=== PATIENT | female | born 1990 | race Caucasian/White ===

== ENCOUNTER 2017-09-25 21:37 | Outpatient (CLI) | payer OTHER ==
[2017-09-25] MEDS: ACETAMINOPHEN 500 MG TAB PO (22:30)
[2017-09-25 22:37] LABS: ADD UMIC NO; UR ASCORBIC ACID NEGATIVE (NEGATIVE); UR BILIRUBIN (Dip) NEGATIVE (NEGATIVE); UR BLOOD (Dip) NEGATIVE (NEGATIVE); UR CALCIUM OXALATE CRYSTAL MODERATE /HPF (NONE SEEN); UR CLARITY SLIGHTLY CLOUDY (CLEAR); UR COLOR YELLOW (YELLOW); UR GLUCOSE (Dip) NEGATIVE (NEGATIVE); UR KETONES (Dip) NEGATIVE (NEGATIVE); UR LEUKOCYTE ESTERASE (Dip) NEGATIVE Leu/ul (NEGATIVE); UR MUCUS MODERATE /HPF (NONE SEEN); UR NITRITE (Dip) NEGATIVE (NEGATIVE); UR RBC 0 /HPF (0-5); UR SPECIFIC GRAVITY (Dip) 1.017 (1.003-1.030); UR SQUAMOUS EPITHELIAL CELL FEW /HPF (FEW); UR TOTAL PROTEIN (Dip) NEGATIVE (NEGATIVE); UR UROBILINOGEN (Dip) 1+ mg/dL (NEGATIVE); UR WBC 1 /HPF (0-5)
== END 2017-09-25 22:55 | disposition home or self-care (01) ==
LOC: OBT 21:37 → L-D 21:39
DX: O9A.212 Injury, poisoning and certain other consequences of external causes complicating pregnancy, second trimester (principal); S09.8XXA Other specified injuries of head, initial encounter; V43.52XA Car driver injured in collision with other type car in traffic accident, initial encounter; Y92.410 Unspecified street and highway as the place of occurrence of the external cause; Z3A.21 21 weeks gestation of pregnancy
CPT/HCPCS: 76815; 76817; 81001; 81003

== ENCOUNTER 2018-01-12 22:15 | Inpatient (IN) | payer OTHER ==
[2018-01-13 01:06] LABS: ADD UMIC YES; UR ASCORBIC ACID NEGATIVE (NEGATIVE); UR BACTERIA MANY /HPF (NONE SEEN); UR BILIRUBIN (Dip) NEGATIVE (NEGATIVE); UR BLOOD (Dip) 2+ mg/dL (NEGATIVE); UR CLARITY SLIGHTLY CLOUDY (CLEAR); UR COLOR YELLOW (YELLOW); UR GLUCOSE (Dip) NEGATIVE (NEGATIVE); UR KETONES (Dip) NEGATIVE (NEGATIVE); UR LEUKOCYTE ESTERASE (Dip) TRACE Leu/ul (NEGATIVE); UR NITRITE (Dip) POSITIVE (NEGATIVE); UR RBC 5 /HPF (0-5); UR SPECIFIC GRAVITY (Dip) 1.008 (1.003-1.030); UR SQUAMOUS EPITHELIAL CELL FEW /HPF (FEW); UR TOTAL PROTEIN (Dip) NEGATIVE (NEGATIVE); UR UROBILINOGEN (Dip) NEGATIVE (NEGATIVE); UR WBC 10 /HPF (0-5)
[2018-01-13] MEDS ORDERED: CARBOPROST 250 MCG INJ IM ×2 (02:00→21:00)
[2018-01-13] MEDS ORDERED: BUTORPHANOL 2 MG INJ IV (02:00)
[2018-01-13] MEDS ORDERED: METHYLERGONOVINE 0.2 MG INJ IM ×2 (02:00→21:00)
[2018-01-13] MEDS ORDERED: LIDOCAINE 1% (MPF) 30 ML INJ INJ (02:00)
[2018-01-13] MEDS ORDERED: MISOPROSTOL 200 MCG TAB PR ×2 (02:00→21:00)
[2018-01-13] MEDS ORDERED: OXYTOCIN 30 UNITS/LR 500 ML IV ×2 (02:00)
[2018-01-13] MEDS: LACTATED RINGER'S 1,000 ML IV ×4 (02:08→19:30)
[2018-01-13] MEDS: AMPICILLIN 2 GM/NS (PMX) 100 ML IV (02:08)
[2018-01-13] MEDS: OXYTOCIN 30 UNITS/LR 500 ML IV ×3 (02:09→22:33)
[2018-01-13 02:15] LABS: ADD MAN DIFF? NO
[2018-01-13 02:18] LABS: WHITE BLOOD COUNT 9.4 10^3/ul (4.8-10.8)
[2018-01-13 02:18] LABS: BASOPHILS % 0.2 % (0.0-2.0); EOSINOPHILS # 0.1 10^3/ul (0.0-0.5); EOSINOPHILS % 0.7 % (0.0-7.0); HEMATOCRIT 33.1 % (37.0-47.0); HEMOGLOBIN 11.3 g/dl (12.0-16.0); LYMPHOCYTES # 1.9 10^3/ul (0.8-2.9); LYMPHOCYTES % 20.1 % (15.0-51.0); MEAN CORPUSCULAR HEMOGLOBIN 29.2 pg (29.0-33.0); MEAN CORPUSCULAR HGB CONC 34.1 g/dl (32.0-37.0); MEAN CORPUSCULAR VOLUME 85.5 fl (82.0-101.0); MEAN PLATELET VOLUME 12.5 fl (7.4-10.4); MONOCYTE # 0.8 10^3/ul (0.3-0.9); MONOCYTES % 8.1 % (0.0-11.0); NEUTROPHIL # 6.6 10^3/ul (1.6-7.5); NEUTROPHILS % 70.6 % (39.0-77.0); PLATELET COUNT 259 10^3/UL (140-415); RED BLOOD COUNT 3.87 10^6/ul (4.20-5.40); RED CELL DISTRIBUTION WIDTH 11.9 % (11.5-14.5)
[2018-01-13 02:22] LABS: INR 0.98; PARTIAL THROMBOPLASTIN TIME 27.4 Sec (25.0-35.0); PROTIME 13.1 Sec (11.9-14.9)
[2018-01-13 03:56] LABS: AMPHETAMINE/METHAMPHETAMINE Negative (NEGATIVE); BARBITURATES Negative (NEGATIVE); BENZODIAZEPINES Negative (NEGATIVE); CANNABINOIDS Negative (NEGATIVE); COCAINE Negative (NEGATIVE); OPIATES Negative (NEGATIVE)
[2018-01-13 04:22] LABS: HEPATITIS B SURFACE ANTIGEN NEGATIVE (NEGATIVE)
[2018-01-13] MEDS: AMPICILLIN 1 GM/NS (PMX) 50 ML IV ×4 (06:01→19:02)
[2018-01-13] MEDS ORDERED: DIPHENHYDRAMINE 50 MG INJ IV (16:00)
[2018-01-13] MEDS ORDERED: EPHEDrine SULFATE 50 MG/5 ML SYG IV (16:00)
[2018-01-13] MEDS ORDERED: NALOXONE (0.4 MG/ML) INJ IV (16:00)
[2018-01-13] MEDS ORDERED: ONDANSETRON 4 MG INJ IV (16:00)
[2018-01-13] MEDS: FENTAnyl 2MCG/ML-ROPIV 0.2% 100 ML BAG EPI (17:13)
[2018-01-13] MEDS ORDERED: OXYCODONE/ASPIRIN (4.88/325) TAB PO ×2 (21:00)
[2018-01-13] MEDS ORDERED: ZOLPIDEM 5 MG TAB PO (21:00)
[2018-01-13] MEDS ORDERED: WITCH HAZEL/GLYCERIN PAD PR (21:00)
[2018-01-13] MEDS: BENZOCAINE 20% 56 ML SPRAY TOP (21:32)
[2018-01-13] MEDS: LANOLIN 7 GM TUBE TOP (21:32)
[2018-01-13] MEDS: SENNA/DOCUSATE NA (8.6MG/50MG) TAB PO (21:32)
[2018-01-13 22:28] LABS: RAPID PLASMA REAGIN NONREACTIVE (NR)
[2018-01-13] MEDS: IBUPROFEN 600 MG TAB PO (23:25)
[2018-01-14] MEDS: IBUPROFEN 600 MG TAB PO ×4 (05:41→23:58)
[2018-01-14 08:41] LABS: ADD MAN DIFF? NO
[2018-01-14 08:45] LABS: BASOPHILS % 0.2 % (0.0-2.0); EOSINOPHILS # 0.1 10^3/ul (0.0-0.5); EOSINOPHILS % 0.8 % (0.0-7.0); HEMATOCRIT 30.2 % (37.0-47.0); HEMOGLOBIN 10.1 g/dl (12.0-16.0); LYMPHOCYTES # 1.9 10^3/ul (0.8-2.9); LYMPHOCYTES % 18.3 % (15.0-51.0); MEAN CORPUSCULAR HEMOGLOBIN 28.5 pg (29.0-33.0); MEAN CORPUSCULAR HGB CONC 33.4 g/dl (32.0-37.0); MEAN CORPUSCULAR VOLUME 85.1 fl (82.0-101.0); MEAN PLATELET VOLUME 11.9 fl (7.4-10.4); MONOCYTES % 9.1 % (0.0-11.0); NEUTROPHIL # 7.6 10^3/ul (1.6-7.5); NEUTROPHILS % 71.2 % (39.0-77.0); PLATELET COUNT 219 10^3/UL (140-415); RED BLOOD COUNT 3.55 10^6/ul (4.20-5.40); RED CELL DISTRIBUTION WIDTH 11.7 % (11.5-14.5)
[2018-01-14 08:45] LABS: WHITE BLOOD COUNT 10.6 10^3/ul (4.8-10.8)
[2018-01-14] MEDS: SENNA/DOCUSATE NA (8.6MG/50MG) TAB PO ×2 (09:42→21:00)
[2018-01-14] MEDS: NITROFURANTOIN (SR) 100 MG CAP PO (20:30)
[2018-01-15] MEDS: IBUPROFEN 600 MG TAB PO ×3 (05:52→17:26)
[2018-01-15] MEDS: SENNA/DOCUSATE NA (8.6MG/50MG) TAB PO (08:36)
[2018-01-15] MEDS: NITROFURANTOIN (SR) 100 MG CAP PO (08:43)
[2018-01-15] MEDS: DIPHTH/TET/ACEL PERTUSS (ADULT) 0.5 ML VIAL IM* (12:08)
== END 2018-01-15 19:35 | disposition home or self-care (01) | DRG 775 ==
LOC: OBT 22:15 → L-D 22:16 → PP1 01-13 21:06 → L-D 22:15
PROC: 10E0XZZ Delivery of Products of Conception, External Approach (ICD-10-PCS; principal; 2018-01-13)
PROC: 3E0234Z Introduction of Serum, Toxoid and Vaccine into Muscle, Percutaneous Approach (ICD-10-PCS; 2018-01-15)
DX: O69.81X0 Labor and delivery complicated by cord around neck, without compression, not applicable or unspecified (principal); Z3A.37 37 weeks gestation of pregnancy; Z37.0 Single live birth; Z23 Encounter for immunization
CPT/HCPCS: 62319; 76818; 80307; 81001; 85025; 85610; 85730; 86592; 86850; 86900; 86901; 87086; 87340; 90715; 99464

== ENCOUNTER 2019-02-22 19:19 | Inpatient (IN) | payer MEDICAID, OTHER ==
[2019-02-22 20:33] LABS: ADD UMIC YES; UR ASCORBIC ACID NEGATIVE (NEGATIVE); UR BACTERIA FEW /HPF (NONE SEEN); UR BILIRUBIN (Dip) NEGATIVE (NEGATIVE); UR BLOOD (Dip) NEGATIVE (NEGATIVE); UR CALCIUM OXALATE CRYSTAL FEW /HPF (NONE SEEN); UR CLARITY SLIGHTLY CLOUDY (CLEAR); UR COLOR YELLOW (YELLOW); UR GLUCOSE (Dip) NEGATIVE (NEGATIVE); UR KETONES (Dip) 1+ mg/dL (NEGATIVE); UR LEUKOCYTE ESTERASE (Dip) NEGATIVE Leu/ul (NEGATIVE); UR MUCUS MANY /HPF (NONE SEEN); UR NITRITE (Dip) NEGATIVE (NEGATIVE); UR RBC 1 /HPF (0-5); UR SPECIFIC GRAVITY (Dip) 1.027 (1.003-1.030); UR SQUAMOUS EPITHELIAL CELL FEW /HPF (FEW); UR TOTAL PROTEIN (Dip) 1+ mg/dl (NEGATIVE); UR UROBILINOGEN (Dip) 1+ mg/dL (NEGATIVE); UR WBC 4 /HPF (0-5)
[2019-02-22 20:43] LABS: AMPHETAMINE/METHAMPHETAMINE Negative (NEGATIVE); BARBITURATES Negative (NEGATIVE); BENZODIAZEPINES Negative (NEGATIVE); CANNABINOIDS Negative (NEGATIVE); COCAINE Negative (NEGATIVE); OPIATES Negative (NEGATIVE)
[2019-02-22] MEDS ORDERED: ACETAMINOPHEN 325 MG TAB PO (23:30)
[2019-02-22] MEDS ORDERED: AL HYDROX/MG HYDROX/SIMETH 30 ML CUP PO (23:30)
[2019-02-23 06:56] LABS: ADD MAN DIFF? NO
[2019-02-23 06:59] LABS: WHITE BLOOD COUNT 6.7 10^3/ul (4.8-10.8)
[2019-02-23 06:59] LABS: BASOPHILS % 0.3 % (0.0-2.0); EOSINOPHILS # 0.1 10^3/ul (0.0-0.5); EOSINOPHILS % 1.4 % (0.0-7.0); HEMATOCRIT 28.2 % (37.0-47.0); HEMOGLOBIN 9.2 g/dl (12.0-16.0); LYMPHOCYTES # 1.7 10^3/ul (0.8-2.9); LYMPHOCYTES % 25.7 % (15.0-51.0); MEAN CORPUSCULAR HEMOGLOBIN 28.5 pg (29.0-33.0); MEAN CORPUSCULAR HGB CONC 32.6 g/dl (32.0-37.0); MEAN CORPUSCULAR VOLUME 87.3 fl (82.0-101.0); MEAN PLATELET VOLUME 11.5 fl (7.4-10.4); MONOCYTE # 0.8 10^3/ul (0.3-0.9); MONOCYTES % 12.2 % (0.0-11.0); NEUTROPHILS % 59.9 % (39.0-77.0); PLATELET COUNT 231 10^3/UL (140-415); RED BLOOD COUNT 3.23 10^6/ul (4.20-5.40); RED CELL DISTRIBUTION WIDTH 12.4 % (11.5-14.5)
[2019-02-23 07:19] LABS: ALANINE AMINOTRANSFERASE 13 IU/L (13-69); ALBUMIN 2.9 g/dl (3.3-4.9); ALBUMIN/GLOBULIN RATIO 1.11; ALKALINE PHOSPHATASE 85 IU/L (42-121); ANION GAP 4 (5-13); ASPARTATE AMINO TRANSFERASE 11 IU/L (15-46); BILIRUBIN,INDIRECT 0.8 mg/dl (0-1.1); BILIRUBIN,TOTAL 0.8 mg/dl (0.2-1.3); BLOOD UREA NITROGEN 5 mg/dl (7-20); CALCIUM 8.6 mg/dl (8.4-10.2); CARBON DIOXIDE 25 mmol/L (21-31); CHLORIDE 108 mmol/L (97-110); Estimated GFR > 60 mL/min (>60); GLUCOSE 81 mg/dl (70-220); POTASSIUM 3.7 mmol/L (3.5-5.1); SODIUM 137 mmol/L (135-144); TOTAL PROTEIN 5.5 g/dl (6.1-8.1); URIC ACID 3.2 mg/dl (3.1-7.9)
[2019-02-23] MEDS ORDERED: PRENATAL VITAMIN PO (09:00)
== END 2019-02-23 16:05 | disposition home or self-care (01) | DRG 833 ==
LOC: OBT 19:19 → L-D 19:21 → OBT 21:50 → L-D 21:50
DX: O47.03 False labor before 37 completed weeks of gestation, third trimester (principal); Z3A.35 35 weeks gestation of pregnancy
CPT/HCPCS: 76815; 76816; 76818; 80053; 80307; 81001; 84560; 85025

== ENCOUNTER 2019-02-26 13:33 | Outpatient (CLI) | payer SELFPAY, MEDICAID ==
[2019-02-26 14:42] LABS: COLLECTION PERIOD 24 hrs
[2019-02-26 15:07] LABS: CREATININE,URINE RANDOM 65.09 mg/dl (20-320)
[2019-02-26 15:12] LABS: ADD UMIC NO; UR ASCORBIC ACID NEGATIVE (NEGATIVE); UR BILIRUBIN (Dip) NEGATIVE (NEGATIVE); UR BLOOD (Dip) NEGATIVE (NEGATIVE); UR CLARITY SLIGHTLY CLOUDY (CLEAR); UR COLOR YELLOW (YELLOW); UR GLUCOSE (Dip) NEGATIVE (NEGATIVE); UR KETONES (Dip) NEGATIVE (NEGATIVE); UR LEUKOCYTE ESTERASE (Dip) NEGATIVE Leu/ul (NEGATIVE); UR MUCUS MANY /HPF (NONE SEEN); UR NITRITE (Dip) NEGATIVE (NEGATIVE); UR RBC 0 /HPF (0-5); UR SQUAMOUS EPITHELIAL CELL FEW /HPF (FEW); UR TOTAL PROTEIN (Dip) NEGATIVE (NEGATIVE); UR UROBILINOGEN (Dip) NEGATIVE (NEGATIVE); UR WBC 5 /HPF (0-5)
[2019-02-26 15:16] LABS: COLLECTION PERIOD 24 hrs; VOLUME 2200 ml/24hrs; VOLUME 2200 mls
[2019-02-26 15:18] LABS: CREATININE CLEARANCE 198.9 mls/min (84.0-162.0)
== END 2019-02-26 16:20 | disposition home or self-care (01) ==
LOC: OBT 13:33 → L-D 13:35 → OBT 16:20
DX: O36.5930 Maternal care for other known or suspected poor fetal growth, third trimester, not applicable or unspecified (principal); Z3A.31 31 weeks gestation of pregnancy
CPT/HCPCS: 76818; 81001; 81003; 82575; 84156

== ENCOUNTER 2019-02-28 11:10 | Outpatient (CLI) | payer SELFPAY | END 2019-02-28 14:08 | disposition home or self-care (01) | LOC: OBT 11:10 → L-D 11:10 → OBT 14:08 | DX: O36.8330 Maternal care for abnormalities of the fetal heart rate or rhythm, third trimester, not applicable or unspecified (principal); Z3A.31 31 weeks gestation of pregnancy | CPT/HCPCS: 76818 ==

== ENCOUNTER 2019-03-02 15:26 | Outpatient (CLI) | payer SELFPAY | END 2019-03-02 17:27 | disposition home or self-care (01) | LOC: OBT 15:26 → L-D 15:27 → OBT 17:27 | DX: O40.3XX0 Polyhydramnios, third trimester, not applicable or unspecified (principal); O36.8330 Maternal care for abnormalities of the fetal heart rate or rhythm, third trimester, not applicable or unspecified; Z3A.32 32 weeks gestation of pregnancy | CPT/HCPCS: 76818 ==

== ENCOUNTER 2019-03-23 17:15 | Outpatient (CLI) | payer MEDICAID ==
[2019-03-23 20:04] LABS: HEMOGLOBIN A1C 4.9 % (0-5.9)
[2019-03-23 21:02] LABS: ADD UMIC NO; UR ASCORBIC ACID NEGATIVE (NEGATIVE); UR BILIRUBIN (Dip) NEGATIVE (NEGATIVE); UR BLOOD (Dip) NEGATIVE (NEGATIVE); UR CLARITY CLEAR (CLEAR); UR COLOR YELLOW (YELLOW); UR GLUCOSE (Dip) NEGATIVE (NEGATIVE); UR KETONES (Dip) NEGATIVE (NEGATIVE); UR LEUKOCYTE ESTERASE (Dip) NEGATIVE Leu/ul (NEGATIVE); UR NITRITE (Dip) NEGATIVE (NEGATIVE); UR SPECIFIC GRAVITY (Dip) 1.008 (1.003-1.030); UR TOTAL PROTEIN (Dip) NEGATIVE (NEGATIVE); UR UROBILINOGEN (Dip) NEGATIVE (NEGATIVE)
[2019-03-25 03:46] LABS: HEMATOCRIT 31.4 % (35.0-45.0); HEMOGLOBIN 10.5 g/dL (11.7-15.5); MCH 28.4 pg (27.0-33.0); MCV 84.9 fL (80.0-100.0); RDW 11.9 % (11.0-15.0)
[2019-03-26 00:27] LABS: CARDIOLIPIN AB - IGA <11 APL; CARDIOLIPIN AB - IGG <14 GPL; CARDIOLIPIN AB - IGM <12 MPL
[2019-03-26 10:27] LABS: HEMOGLOBIN A 97.5 % (>96.0); HEMOGLOBIN A2 (QUANT) 2.5 % (1.8-3.5); HEMOGLOBIN F <1.0 % (<2.0)
== END 2019-03-23 22:15 | disposition home or self-care (01) ==
LOC: OBT 17:15 → L-D 17:16 → OBT 22:15
DX: O62.9 Abnormality of forces of labor, unspecified (principal); O26.893 Other specified pregnancy related conditions, third trimester; R10.2 Pelvic and perineal pain; O99.113 Other diseases of the blood and blood-forming organs and certain disorders involving the immune mechanism complicating pregnancy, third trimester; D68.62 Lupus anticoagulant syndrome; O99.323 Drug use complicating pregnancy, third trimester; F12.90 Cannabis use, unspecified, uncomplicated; O09.299 Supervision of pregnancy with other poor reproductive or obstetric history, unspecified trimester; Z3A.37 37 weeks gestation of pregnancy
CPT/HCPCS: 76815; 76818; 81003; 81240; 83020; 83036; 83890; 85300; 85613; 86147

== ENCOUNTER 2019-04-06 23:45 | Outpatient (CLI) | payer MEDICAID ==
[2019-04-07 02:28] LABS: ADD UMIC YES; UR ASCORBIC ACID NEGATIVE (NEGATIVE); UR BACTERIA FEW /HPF (NONE SEEN); UR BILIRUBIN (Dip) NEGATIVE (NEGATIVE); UR BLOOD (Dip) NEGATIVE (NEGATIVE); UR CALCIUM OXALATE CRYSTAL MODERATE /HPF (NONE SEEN); UR CLARITY SLIGHTLY CLOUDY (CLEAR); UR COLOR YELLOW (YELLOW); UR GLUCOSE (Dip) NEGATIVE (NEGATIVE); UR KETONES (Dip) TRACE mg/dL (NEGATIVE); UR LEUKOCYTE ESTERASE (Dip) 3+ Leu/ul (NEGATIVE); UR MUCUS MODERATE /HPF (NONE SEEN); UR NITRITE (Dip) NEGATIVE (NEGATIVE); UR RBC 0 /HPF (0-5); UR SPECIFIC GRAVITY (Dip) 1.012 (1.003-1.030); UR SQUAMOUS EPITHELIAL CELL FEW /HPF (FEW); UR TOTAL PROTEIN (Dip) NEGATIVE (NEGATIVE); UR UROBILINOGEN (Dip) NEGATIVE (NEGATIVE); UR WBC 29 /HPF (0-5)
[2019-04-07 02:32] LABS: AMPHETAMINE/METHAMPHETAMINE NEGATIVE (NEGATIVE); BARBITURATES NEGATIVE (NEGATIVE); BENZODIAZEPINES NEGATIVE (NEGATIVE); CANNABINOIDS NEGATIVE (NEGATIVE); COCAINE NEGATIVE (NEGATIVE); OPIATES NEGATIVE (NEGATIVE)
== END 2019-04-07 02:58 | disposition home or self-care (01) ==
LOC: OBT 23:45 → L-D 23:45
DX: O62.9 Abnormality of forces of labor, unspecified (principal); Z3A.37 37 weeks gestation of pregnancy
CPT/HCPCS: 76818; 80307; 81001; 87086

== ENCOUNTER 2019-04-22 10:11 | Inpatient (IN) | payer MEDICAID ==
[2019-04-22] MEDS ORDERED: METHYLERGONOVINE 0.2 MG INJ IM (11:30)
[2019-04-22] MEDS ORDERED: BUTORPHANOL 2 MG INJ IV (11:30)
[2019-04-22] MEDS ORDERED: LIDOCAINE 1% (MPF) 30 ML INJ INJ (11:30)
[2019-04-22] MEDS ORDERED: CARBOPROST 250 MCG INJ IM (11:30)
[2019-04-22] MEDS ORDERED: IBUPROFEN 600 MG TAB PO (11:30)
[2019-04-22] MEDS ORDERED: OXYCODONE/ASPIRIN (4.88/325) TAB PO (11:30)
[2019-04-22] MEDS ORDERED: MISOPROSTOL 200 MCG TAB PR (11:30)
[2019-04-22] MEDS ORDERED: OXYTOCIN 30 UNITS/LR 500 ML IV (11:30)
[2019-04-22] MEDS: LACTATED RINGER'S 1,000 ML IV ×3 (11:56→17:42)
[2019-04-22 12:01] LABS: ADD MAN DIFF? NO
[2019-04-22 12:06] LABS: BASOPHILS % 0.2 % (0.0-2.0); EOSINOPHILS % 0.5 % (0.0-7.0); HEMATOCRIT 29.2 % (37.0-47.0); HEMOGLOBIN 9.4 g/dl (12.0-16.0); LYMPHOCYTES # 1.3 10^3/ul (0.8-2.9); MEAN CORPUSCULAR HEMOGLOBIN 26.6 pg (29.0-33.0); MEAN CORPUSCULAR HGB CONC 32.2 g/dl (32.0-37.0); MEAN CORPUSCULAR VOLUME 82.7 fl (82.0-101.0); MEAN PLATELET VOLUME 12.9 fl (7.4-10.4); MONOCYTE # 0.7 10^3/ul (0.3-0.9); MONOCYTES % 10.9 % (0.0-11.0); NEUTROPHILS % 65.9 % (39.0-77.0); PLATELET COUNT 208 10^3/UL (140-415); RED BLOOD COUNT 3.53 10^6/ul (4.20-5.40); RED CELL DISTRIBUTION WIDTH 12.9 % (11.5-14.5)
[2019-04-22 12:25] LABS: INR 1.06; PARTIAL THROMBOPLASTIN TIME 26.6 Sec (23.0-35.0); PROTIME 13.9 Sec (11.9-14.9); PT RATIO 1.1
[2019-04-22] MEDS: AMPICILLIN 2 GM/NS (PMX) 100 ML IVPB (12:29)
[2019-04-22 13:00] LABS: HEPATITIS B SURFACE ANTIGEN NEGATIVE (NEGATIVE)
[2019-04-22] MEDS: OXYTOCIN 30 UNITS/LR 500 ML IV (13:02)
[2019-04-22 14:59] LABS: RAPID PLASMA REAGIN NONREACTIVE (NR)
[2019-04-22] MEDS: AMPICILLIN 1 GM/NS (PMX) 50 ML IVPB ×2 (16:35→21:00)
[2019-04-22] MEDS ORDERED: NALOXONE (0.4 MG/ML) INJ IV (17:00)
[2019-04-22] MEDS ORDERED: DIPHENHYDRAMINE 50 MG INJ IV (17:00)
[2019-04-22] MEDS ORDERED: HYDROmorphONE 0.5 MG/0.5 ML SYG IV ×2 (17:00)
[2019-04-22] MEDS ORDERED: KETOROLAC 30 MG INJ IV (17:00)
[2019-04-22] MEDS ORDERED: MINERAL OIL LIGHT 10 ML VIAL TOP (17:00)
[2019-04-22] MEDS: FENTAnyl 2MCG/ML-ROPIV 0.2% 100 ML BAG EPI (17:42)
[2019-04-23] MEDS: OXYTOCIN 30 UNITS/LR 500 ML IV ×2 (00:35→00:37)
[2019-04-23] MEDS: AMPICILLIN 1 GM/NS (PMX) 50 ML IVPB (01:00)
[2019-04-23] MEDS: DEXTROSE 5%-LR 1,000 ML IV ×2 (03:01→11:01)
[2019-04-23] MEDS ORDERED: MISOPROSTOL 200 MCG TAB PR (03:30)
[2019-04-23] MEDS ORDERED: ACETAMINOPHEN 325 MG TAB PO (03:30)
[2019-04-23] MEDS ORDERED: OXYCODONE/ASPIRIN (4.88/325) TAB PO (03:30)
[2019-04-23] MEDS ORDERED: METHYLERGONOVINE 0.2 MG INJ IM (03:30)
[2019-04-23] MEDS ORDERED: ONDANSETRON 4 MG INJ IV (03:30)
[2019-04-23] MEDS ORDERED: ZOLPIDEM 5 MG TAB PO (03:30)
[2019-04-23] MEDS ORDERED: DIPHENHYDRAMINE 50 MG INJ IV (03:30)
[2019-04-23] MEDS ORDERED: CARBOPROST 250 MCG INJ IM (03:30)
[2019-04-23] MEDS ORDERED: OXYTOCIN 30 UNITS/LR 500 ML IV (03:30)
[2019-04-23] MEDS ORDERED: DIBUCAINE 1% 30 GM OINT TOP (03:30)
[2019-04-23] MEDS: LANOLIN HPA 1 PKT TOP (06:15)
[2019-04-23] MEDS: IBUPROFEN 600 MG TAB PO ×4 (06:15→23:45)
[2019-04-23] MEDS: LACTATED RINGER'S 1,000 ML IV* ×2 (06:16→11:01)
[2019-04-23] MEDS: BENZOCAINE 20% 56 ML SPRAY TOP (06:16)
[2019-04-23] MEDS: WITCH HAZEL/GLYCERIN PAD PR (06:16)
[2019-04-24 04:59] LABS: ADD MAN DIFF? NO
[2019-04-24 05:04] LABS: BASOPHILS % 0.1 % (0.0-2.0); EOSINOPHILS # 0.1 10^3/ul (0.0-0.5); HEMATOCRIT 29.4 % (37.0-47.0); HEMOGLOBIN 9.4 g/dl (12.0-16.0); LYMPHOCYTES # 2.4 10^3/ul (0.8-2.9); LYMPHOCYTES % 34.7 % (15.0-51.0); MEAN CORPUSCULAR VOLUME 84.5 fl (82.0-101.0); MEAN PLATELET VOLUME 12.9 fl (7.4-10.4); MONOCYTE # 0.7 10^3/ul (0.3-0.9); MONOCYTES % 10.3 % (0.0-11.0); NEUTROPHIL # 3.7 10^3/ul (1.6-7.5); NEUTROPHILS % 53.6 % (39.0-77.0); PLATELET COUNT 190 10^3/UL (140-415); RED BLOOD COUNT 3.48 10^6/ul (4.20-5.40); RED CELL DISTRIBUTION WIDTH 13.1 % (11.5-14.5)
[2019-04-24] MEDS: IBUPROFEN 600 MG TAB PO ×3 (05:38→18:44)
[2019-04-24] MEDS: SENNA/DOCUSATE NA (8.6MG/50MG) TAB PO (09:40)
[2019-04-24] MEDS: LANOLIN HPA 1 PKT TOP (17:03)
[2019-04-25] MEDS: IBUPROFEN 600 MG TAB PO ×3 (00:31→12:03)
[2019-04-25] MEDS: MEASLES,MUMPS,RUBELLA VACCINE INJ SC* (09:00)
[2019-04-25] MEDS: SENNA/DOCUSATE NA (8.6MG/50MG) TAB PO (09:51)
[2019-04-25] MEDS: DIPHTH/TET/ACEL PERTUSS (ADULT) 0.5 ML VIAL IM* (12:16)
== END 2019-04-25 16:30 | disposition home or self-care (01) | DRG 807 ==
LOC: L-D 10:11 → MS1 04-23 02:15
PROVIDERS: Obstetrics & Gynecology
PROC: 3E033VJ Introduction of Other Hormone into Peripheral Vein, Percutaneous Approach (ICD-10-PCS; 2019-04-22 08:00)
DX: O99.824 Streptococcus B carrier state complicating childbirth (principal); O70.0 First degree perineal laceration during delivery; O69.1XX0 Labor and delivery complicated by cord around neck, with compression, not applicable or unspecified; Z3A.39 39 weeks gestation of pregnancy; Z37.0 Single live birth
CPT/HCPCS: 62322; 76815; 85025; 85610; 85730; 86592; 86850; 86900; 86901; 87340; 90715